=== PATIENT | female | born 1955 | race Caucasian/White ===

== ENCOUNTER 2022-11-03 08:24 | Day surgery (SDC) | payer MEDICARE, BC ==
[2022-10-31 15:01] LABS: BASOPHILS % (AUTO) 0.5 % (0-1); EOSINOPHILS % (AUTO) 0.5 % (0-6); LYMPHOCYTES # (AUTO) 1.8 X10'3 (1.1-4.8); LYMPHOCYTES % (AUTO) 21.1 % (21-51); MEAN CORPUSCULAR HEMOGLOBIN 35.4 PG (27.0-31.0); MEAN CORPUSCULAR HGB CONC 33.8 g/dL (33.0-36.5); MEAN CORPUSCULAR VOLUME 104.8 FL (78-98); MEAN PLATELET VOLUME 8.2 FL (7.4-10.4); MONOCYTES # (AUTO) 0.7 X10'3 (0-0.9); MONOCYTES % (AUTO) 8.3 % (2-12); NEUTROPHILS % (AUTO) 69.6 % (42-75); PRE OP HEMATOCRIT 40.4 % (35.0-45.0); PRE OP HEMOGLOBIN 13.7 g/dL (12.0-16.0); PRE OP PLATELET COUNT 310 X10'3 (140-440); RED BLOOD COUNT 3.86 X10'6 (4.20-5.60); RED CELL DISTRIBUTION WIDTH 13.9 % (11.5-14.5)
[2022-10-31 15:13] LABS: ALBUMIN/GLOBULIN RATIO 1.3 (1.1-1.5); ALKALINE PHOSPHATASE 76 IU/L (46-116); BLOOD UREA NITROGEN 15 MG/DL (7-18); BUN/CREATININE RATIO 13.2 (10.0-20.0); CALCIUM 9.4 MG/DL (8.5-10.1); CHLORIDE 103 MMOL/L (99-107); CLARITY,URINE SLIGHTLY CLOUDY (Clear); COLOR,URINE YELLOW (Yellow); CREATININE 1.14 MG/DL (0.40-0.90); GLUCOSE, URINE NEGATIVE (Neg); KETONES,URINE NEGATIVE (Neg); LEUKOCYTE ESTERASE ,URINE SMALL (Neg); NITRITES, URINE NEGATIVE (Neg); OCCULT BLOOD,URINE SMALL (Neg); PRE OP ALT 28 U/L (30-65); PRE OP ANION GAP 11 (8-16); PRE OP AST 18 U/L (10-37); PRE OP BILIRUB, TOTAL 0.5 MG/DL (0.0-1.0); PRE OP GLUCOSE 114 MG/DL (70-104); PRE OP SODIUM 139 MMOL/L (135-145); PROTEIN,URINE NEGATIVE (Neg); TOTAL CARBON DIOXIDE 25.3 MMOL/L (24-32); UROBILINOGEN,URINE 0.2 E.U/dL (0.2-1.0); eGFR 47 ML/MIN
[2022-10-31 15:25] LABS: UA COLLECTION TYPE CLN CATCH MIDSTREAM
[2022-10-31 15:26] LABS: MUCUS STRANDS MODERATE /LPF (Neg); SQUAMOUS EPITHELIAL CELL,UR FEW /LPF (FEW); TRANSITIONAL EPI CELLS,URINE FEW /HPF
[2022-10-31 15:27] LABS: BACTERIA,URINE FEW /HPF (Neg); RBC,URINE 0-2 /HPF (0-2); WBC CLUMPS,URINE FEW /HPF (NEGATIVE)
[2022-10-31 15:29] LABS: HYALINE CASTS 0-3 /LPF (NEGATIVE)
[2022-11-03] VITALS (13 sets, daily range): BP systolic 92–132; BP diastolic 50–71
[~2022-11-03] VITALS: Ht 152.4 cm; Wt 68.9 kg
[~2022-11-03 08:24] MED LIST: ATOR40TA72 PO; CALCIUM D3 PO; KRIL500C PO; TUMERIC PO; VITAMIN B PO; cefazolin 2gm/D5W 100mL 100 ML IV ONE; famotidine 20mg tablet PO ONE; ringers solution, lacted 1,000 ML IV SCH
[2022-11-03] MEDS ORDERED: bacitracin 15gm ointment TP ONE (12:29)
[2022-11-03] MEDS ORDERED: BUPIVAcaine/PF 2.5 mg/ml (0.25%) 30ml vial ONE (12:29)
[2022-11-03] MEDS ORDERED: fentaNYL/PF 50MCG/1 ML 2ML syringe ONE (12:49)
[2022-11-03] MEDS ORDERED: midazolam 1 mg/ML 2ml injection ONE (12:50)
[2022-11-03] MEDS ORDERED: sevoflurane 250ml liquid IH ONE (12:50)
[2022-11-03] MEDS ORDERED: dexamethasone sod phosphate 4mg/ml inj. ONE (12:50)
[2022-11-03] MEDS ORDERED: acetaminophen 1,000mg/100ml IV 100 ML IV ONE (13:17)
[2022-11-03] MEDS ORDERED: ondansetron/PF 4mg/2ml inj ONE (13:17)
[2022-11-03] MEDS ORDERED: propofol inj 20 ML IV ONE (13:17)
[2022-11-03] MEDS ORDERED: LIDOcaine 2% (20mg/ml) 5ml vial ONE (13:17)
[2022-11-03] MEDS ORDERED: hydrALAZINE 20mg/ml inj. IV PRN (13:25)
[2022-11-03] MEDS ORDERED: enalaprilat dihydrate 2.5mg/2ml vial IV PRN (13:25)
[2022-11-03] MEDS ORDERED: ondansetron/PF 4mg/2ml inj IV PRN (13:25)
[2022-11-03] MEDS ORDERED: fentaNYL/PF 50MCG/1 ML 2ML syringe IV PRN ×2 (13:25)
[2022-11-03] MEDS ORDERED: morphine 4 MG/ML inj SYRINge IV PRN (13:25)
[2022-11-03] MEDS ORDERED: morphine 2 MG/ML inj. syringe IV PRN (13:25)
[2022-11-03] MEDS ORDERED: ringers solution, lacted 1,000 ML IV SCH (13:25)
[2022-11-03] MEDS ORDERED: meperidine/PF 50mg/ml syringe ONE (13:27)
--- NOTE | 2022-11-03 13:52 | NUR ---
Received from OR via [facility], accompanied by Anesthesiologist DR BURNETTE and report given by Anesthesiologist AND SURVE[employer] C[employer] DIRECTOR. PT VERY SEDATED, NO S/S OF DISTRESS/DISCOMFORT, LMA IN PLACE. LEFT FOOT W/MAYTE WRAP COVERING INCISION/DRSG CDI. TOES PWD, INCIDENT RESPONSE LEAD 1-2 SECONDS. Addendum: 11/03/22 at 1426 by Anay Thompson RN Amended: Links added.
--- NOTE | 2022-11-03 16:02 | NUR ---
PT PIVOTS TO W/C SAFELY, D/C INSTRUCTIONS GIVEN AND GONE OVER W/PT AND PTS WHO VERBALIZED UNDERSTANDING. PT D/CD TO HOME VIA W/C TO PRIVATE VEHICLE W/O INCIDENT. Addendum: 11/03/22 at 1615 by Anay Thompson RN Amended: Links added.
== END 2022-11-03 16:02 | disposition home or self-care (01) ==
LOC: PAS 08:24
PROVIDERS: ATTEND Podiatrist Foot & Ankle Surgery
DX: S92.352A Displaced fracture of fifth metatarsal bone, left foot, initial encounter for closed fracture (principal); F41.9 Anxiety disorder, unspecified; M19.90 Unspecified osteoarthritis, unspecified site; Z79.82 Long term (current) use of aspirin; Z79.899 Other long term (current) drug therapy; Z88.8 Allergy status to other drugs, medicaments and biological substances; F17.210 Nicotine dependence, cigarettes, uncomplicated; Z72.89 Other problems related to lifestyle; X58.XXXA Exposure to other specified factors, initial encounter; Y93.89 Activity, other specified; Y92.89 Other specified places as the place of occurrence of the external cause; Y99.8 Other external cause status
CPT/HCPCS: 28485; 36415; 73620; 80053; 81001; 82948; 85025; 87077; 87088; 87186; 93005; A6223; C1713; J0131; J0690; J1100; J2175; J2250; J2405; J2704; J3010; J3490; J7030; J7120; Z7506; Z7508; Z7512; 76000; A4215; A4618; A6449; A7000